=== PATIENT | female | born 1955 | race Asian ===

== ENCOUNTER 2023-04-15 23:46 | Emergency (ER) | payer OTHER, MEDICARE ==
[~2023-04-15] VITALS: Ht 152.4 cm; Wt 54.4 kg
[2023-04-15 23:48] VITALS: BP_SYST 137; PULSE 70; RESP 18; TEMP 97.3; O2SAT 97
[2023-04-16 00:26] VITALS: BP_SYST 109; PULSE 68; RESP 20; TEMP 97.7; O2SAT 95
== END 2023-04-16 00:26 | disposition home or self-care (01) ==
LOC: SED 23:46
DX: I16.0 Hypertensive urgency (principal); I10 Essential (primary) hypertension; R51.9 Headache, unspecified; Z79.899 Other long term (current) drug therapy
CPT/HCPCS: 99283